=== PATIENT | male | born 1980 | race Caucasian/White ===

== ENCOUNTER 2021-12-06 04:32 | Emergency (ER) | payer SELFPAY ==
[~2021-12-06] VITALS: Ht 165.1 cm; Wt 60.0 kg
[2021-12-06 04:50] VITALS: BP 118/70
== END 2021-12-06 05:25 ==
LOC: ER 05:08
DX: Z53.21 Procedure and treatment not carried out due to patient leaving prior to being seen by health care provider (principal)
CPT/HCPCS: 99283